=== PATIENT | female | born 1975 | race Caucasian/White ===

== ENCOUNTER 2019-07-07 14:59 | Emergency (ER) | payer OTHER ==
[~2019-07-07] VITALS: Ht 160 cm; Wt 59.0 kg
[~2019-07-07 14:59] MED LIST: FLEXERIL PO; HYDROCODON-ACE1 EAC7 PO; LEVOTHYROXIN0.125 M1; MECLIZINE 25 MG25 M1 PO; NORCO 5-325 TA1 EACH PO; XANAX 0.25 MG0.25 MG PO; ZOFRAN 4 MG ORAL4 M1 DIS
[2019-07-07] MEDS ORDERED: TRAMADOL 50 MG50 MG PO (16:49)
[2019-07-07] MEDS ORDERED: IBUPROFEN 800800 M1 PO (16:49)
[2019-07-07 17:25] VITALS: BP 121/82
== END 2019-07-07 17:26 | disposition home or self-care (01) ==
LOC: ER 14:59
DX: S93.491A Sprain of other ligament of right ankle, initial encounter (principal); Z88.0 Allergy status to penicillin; Z88.6 Allergy status to analgesic agent; X50.1XXA Overexertion from prolonged static or awkward postures, initial encounter; Y93.01 Activity, walking, marching and hiking; Y92.89 Other specified places as the place of occurrence of the external cause; Y99.8 Other external cause status